=== PATIENT | male | born 1955 | race Caucasian/White ===

== ENCOUNTER 2017-04-19 19:55 | Emergency (ER) | payer OTHER ==
[~2017-04-19] VITALS: Ht 177.8 cm; Wt 81.8 kg
[~2017-04-19 19:55] MED LIST: ASPIRIN E.C. 8181 MG PO; PROSCAR PO
[2017-04-19 19:58] VITALS: BP 162/74; TEMP 97.7
[2017-04-19 20:27] LABS: BASO # 0.1 (0.0-0.2); BASO % 0.5 % (0.0-2.0); EOS # 0.2 (0.0-0.7); EOS % 1.5 % (0-4.0); GRAN % 54.9 % (42.2-75.2); HEMATOCRIT 42.7 % (42.0-52.0); HEMOGLOBIN 14.4 g/dl (13.5-18.0); LYMPH # 3.7 (1.2-3.4); LYMPH % 33.5 % (20.0-51.0); MEAN CELL VOLUME 93 fl (80.0-100.0); MEAN CORPUSCULAR HEMOGLOBIN 31 pg (27.0-31.0); MEAN CORPUSCULAR HGB CONC 34 g/dl (33.0-37.0); MEAN PLATELET VOLUME 10.7 fl (7.4-10.4); MONO % 9.3 % (1.7-9.3); PLATELET COUNT 194 K/mm3 (130-400); REDCELL DISTRIBUTION WIDTH-CV 13.5 % (11.5-14.5)
[2017-04-19 20:40] LABS: ADJUSTED CALCIUM 8.8 mg/dL (8.4-10.2); ALANINE AMINOTRANSFERASE 31 U/L (21-72); ALBUMIN 4.7 gm/dL (3.5-5.0); ALKALINE PHOSPHATASE 65 U/L (50-136); ANION GAP 12 mmol/L (7-16); BILIRUBIN,TOTAL 0.7 mg/dL (0.0-1.0); BLOOD UREA NITROGEN 27 mg/dL (9-20); CALCIUM 9.4 mg/dL (8.4-10.2); CARBON DIOXIDE 21 mmol/L (22-30); CHLORIDE 106 mmol/L (98-107); CREATININE, serum 1.04 mg/dL (0.66-1.25); GLUCOSE 98 mg/dL (74-106); LIPASE 81 U/L (23-300); POTASSIUM 3.9 mmol/L (3.4-5.0); SODIUM 139 mmol/L (137-145); TOTAL PROTEIN 8.3 gm/dL (6.4-8.2)
[2017-04-19 20:44] LABS: PH 5 (5-8); SQUAMOUS EPITHELIAL None Seen /hpf; URINE APPEARANCE Clear; URINE BACTERIA None Seen /hpf; URINE BILIRUBIN Negative (NEGATIVE); URINE BLOOD 2+ (NEGATIVE); URINE COLOR Yellow; URINE GLUCOSE Negative (NEGATIVE); URINE KETONE Trace (NEGATIVE); URINE URIC ACID CRYSTAL Present /hpf; URINE UROBILINOGEN Negative (NEGATIVE)
[2017-04-19 20:52] LABS: C-REACTIVE PROTEIN < 0.5 mg/dL (0.0-0.9)
[2017-04-19] MEDS ORDERED: ZOFRAN 4MG T4 MG/TAB PO (21:39)
[2017-04-19] MEDS ORDERED: NORCO 325 MG-51 TAB PO (21:39)
[2017-04-19] MEDS ORDERED: FLOMAX 0.40.4 MG/CAP PO (21:39)
[2017-04-19 22:02] VITALS: PULSE 62
== END 2017-04-19 22:05 | disposition home or self-care (01) ==
LOC: COL.ER 19:55
PROVIDERS: Emergency Medicine
DX: N13.2 Hydronephrosis with renal and ureteral calculous obstruction (principal)
CPT/HCPCS: J1170; J1885; J2405; J7030; Q9967

== ENCOUNTER 2017-04-21 09:18 | Day surgery (SDC) | payer OTHER ==
[~2017-04-21] VITALS: Ht 177.8 cm; Wt 84.0 kg
[~2017-04-21 09:18] MED LIST changes: +FLOMAX 0.40.4 MG/CAP PO; +NORCO 325 MG-51 TAB PO; +ZOFRAN 4MG T4 MG/TAB PO
[2017-04-21 10:19] VITALS: BP 121/74; PULSE 54; TEMP 97.7
[2017-04-21] MEDS ORDERED: ASPIRIN E.C. 8181 MG PO (10:45)
[2017-04-21] MEDS ORDERED: PEPCID 20MG TAB20 MG PO (10:47)
[2017-04-21] MEDS ORDERED: LUTEIN 15 MG-0.1 SGL PO (10:47)
[2017-04-21 12:30] VITALS: BP 152/71; PULSE 51; TEMP 97.2
[2017-04-21 12:45] VITALS: BP 160/85; PULSE 46
[2017-04-21 13:00] VITALS: BP 160/77; PULSE 45
[2017-04-21 14:17] VITALS: BP 156/86; PULSE 48; TEMP 98.5
== END 2017-04-21 13:32 | disposition home or self-care (01) ==
LOC: SDCO 09:18
DX: N20.1 Calculus of ureter (principal); R97.20 Elevated prostate specific antigen [PSA]; Z80.0 Family history of malignant neoplasm of digestive organs
CPT/HCPCS: C1769; C2617; C2625; J0690; J1100; J2405; J2704; J3010; J7120; Q9967

== ENCOUNTER 2020-12-02 11:09 | Day surgery (SDC) | payer MEDICARE, OTHER ==
[2020-12-02] VITALS (13 sets, daily range): BP systolic 108–157; BP diastolic 64–86; PULSE 47–76; TEMP 97.7–98
[~2020-12-02] VITALS: Ht 177.8 cm; Wt 86.5 kg
--- NOTE | 2020-12-02 10:05 | NUR ---
Patient returns to room 8 per cart from PACU accompanied by Lilibeth GAN and is arouses to verbal stimuli. Bandaids on mid abdomen clean and dry x3. Scrotal support on. IV fluids infusingTKO. Temp 98.7 and meggan hugger on for complaints of being cold. Sats 98% on 2L per nasal cannula.
--- NOTE | 2020-12-02 10:20 | NUR ---
States is warm enough and meggan hugger removed. Warm blankets on.
--- NOTE | 2020-12-02 10:35 | NUR ---
Resting without complaints of pain or nausea. Spouse remains in room.
--- NOTE | 2020-12-02 10:50 | NUR ---
Resting without complaints of pain or nausea.
--- NOTE | 2020-12-02 11:05 | NUR ---
More awake and oxygen removed. Sipping on Sprite.
[~2020-12-02 11:09] MED LIST changes: +LUTEIN 15 MG-0.1 SGL PO; +PEPCID 20MG TAB20 MG PO; +PROSCAR 5MG5 MG PO; -PROSCAR PO
[2020-12-02] MEDS ORDERED: VITAMINC1000TA PO (13:07)
[2020-12-02] MEDS ORDERED: VITAMIND3 5000 PO (13:08)
--- NOTE | 2020-12-02 14:58 | NUR ---
Pt has arrived to the unit from PACU. He is alert and oriented, tolerating ice water, no pain complaints. He is unable to feel or move his lower extremitries. CBI was running open, slowed down due to output being clear and no color. Educated the patient on room service as well as the plan for the day.
--- NOTE | 2020-12-02 15:49 | NUR ---
Pt continues to do well with no complaints. Gave him some applesauce at this time, output is pink tinged and clear with CBI running at slow to moderate rate
--- NOTE | 2020-12-02 23:57 | NUR ---
GIVEN MELATONIN FOR SLEEP.
[2020-12-03 00:20] VITALS: BP 142/82; PULSE 69; TEMP 98
--- NOTE | 2020-12-03 01:00 | NUR ---
IVF COMPLETE, CAPPED AT THIS TIME, PT TAKING FLUIDS WELL. CBI AT MODERATE RATE, URINE PINK TINGED.
[2020-12-03 04:49] VITALS: BP 135/69; PULSE 61; TEMP 97.8
--- NOTE | 2020-12-03 06:05 | NUR ---
Pt felt like he had a full bladder. Hand irrigated easily with no clots returned. Urine is pink tinged.
[2020-12-03 07:35] VITALS: BP 155/83; PULSE 78; TEMP 97.7
--- NOTE | 2020-12-03 09:00 | NUR ---
Patient alert and oriented, answers questions appropriately. See assessment. CBI clamped at 0700. Villatoro catheter in place and draining clear brandon urine. No c/o at this time.
--- NOTE | 2020-12-03 09:16 | NUR ---
Initial visit; Patient friendly and pleasant to visit with. Ayush states he is doing well and offered Cabinetmaker Supervisor God's blessings when she first offered blessings to him. Cabinetmaker Supervisor thanked patient and wished him a great day.
--- NOTE | 2020-12-03 10:51 | NUR ---
Prime and pull per doctors order. 300ml of NS instilled into the bladder via CBI. Floey discontinued. Patient tollerated it well.
--- NOTE | 2020-12-03 11:52 | NUR ---
SW met with the patient to discuss discharge plan. The patient lives in [place] with his , Alison (ph#[phone]). He reports independence with ADLs and does not have any DME. The patient's PCP is Dr. Bryce Pacheco and he receives his medications from [facility]. He reports no difficulties obtaining his meds. The patient does not have a DPOA-HC, but he states that he has the paperwork at home and plans on completing it soon. The patient plans to return home with his upon discharge. No additional needs at this time.
[2020-12-03 12:09] VITALS: BP 129/78; PULSE 79; TEMP 97.8
--- NOTE | 2020-12-03 13:34 | NUR ---
Discharge instructions reviewed with patient and spouse, verbalized understanding. Discharged via wheelchair to auto/home with spouse at 1245.
== END 2020-12-03 12:45 | disposition home or self-care (01) ==
LOC: SURG 11:09 → SDCO 11:09 → SURG 14:45 → SDCO 12-03 12:45
DX: N40.1 Benign prostatic hyperplasia with lower urinary tract symptoms (principal); N13.8 Other obstructive and reflux uropathy; N39.41 Urge incontinence; R39.12 Poor urinary stream; I10 Essential (primary) hypertension; Z90.89 Acquired absence of other organs; Z79.82 Long term (current) use of aspirin; Z79.899 Other long term (current) drug therapy; Z79.891 Long term (current) use of opiate analgesic; Z88.1 Allergy status to other antibiotic agents; Z80.0 Family history of malignant neoplasm of digestive organs; Z80.41 Family history of malignant neoplasm of ovary
CPT/HCPCS: OP; J0690; J1100; J2250; J2405; J2704; J3480; J7120

== ENCOUNTER 2023-09-13 14:17 | Day surgery (SDC) | payer MEDICARE, OTHER ==
[~2023-09-13] VITALS: Ht 177.8 cm; Wt 84.6 kg
[~2023-09-13 14:17] MED LIST changes: +VITAMINC1000TA PO; +VITAMIND3 5000 PO
[2023-09-13] MEDS ORDERED: ASPIRIN 81M81 MG/TA2 PO (14:47)
[2023-09-13 14:49] VITALS: BP 118/80; PULSE 62; TEMP 98
--- NOTE | 2023-09-13 15:17 | NUR ---
PATIENT AMBULATED TO BAY 8 WITH STEADY GAIT. ALERT AND ORIENTED X4. PATIENT STATED UNDERSTANDING OF PROCEDURE. CONSENTS SIGNED. ASSESSMENT COMPLETED. 20G IV STARTED IN RIGHT HAND. GOOD BLOOD RETURN NOTED. LR INFUSING WITHOUT DIFFICULTIES. WARM BLANKET PROVIDED. NO FURTHER NEEDS NOTED. RESTING IN COT. CALL LIGHT IN REACH. AT BEDSIDE.
[2023-09-13] MEDS ORDERED: PERCOCET 325 MG1 TA2 PO (17:18)
[2023-09-13] MEDS ORDERED: FLOMAX 0.40.4 MG/CAP PO (17:18)
[2023-09-13 18:05] VITALS: BP 153/70; PULSE 72
[2023-09-13 18:20] VITALS: BP 139/78; PULSE 67
--- NOTE | 2023-09-13 18:30 | NUR ---
Pt arrived to the floor recently from Pacu. Pt at bedside. Pt has no complaints of pain. He has tolerated water, gave him some beverly crackers and applesauce at this time. VSS. Did discuss seeing primary care regarding his blood pressure. Educated on criteria for discharge
[2023-09-13 18:35] VITALS: BP 144/72; PULSE 67
--- NOTE | 2023-09-13 18:47 | NUR ---
report received from jeannette blackman. pt sitting in bed with at bedside. pt denies pain. pt up to bathroom, voided with no issue. pt gait steady. call light in place. all needs met at this time.
--- NOTE | 2023-09-13 18:47 | NUR ---
Pt has tolerated regular food and is in the bathroom now. Pt was steady on his feet. Continues to have no complaints of pain. Report given
--- NOTE | 2023-09-13 19:13 | NUR ---
Pt has tolerated general diet and voided without difficulty. VSS. Reviewed discharge instructions with pt and spouse. Went over new prescriptions and ensuring a follow up appointment is made with urology. Educated pt to drink plenty of water. No needs or questions. INT removed from right hand and pt escorted out via wheelchair by myself.
[2023-09-13 19:58] VITALS: BP 153/70; PULSE 60; TEMP 97
== END 2023-09-13 19:15 | disposition home or self-care (01) ==
LOC: SDCO 14:17 → SURG 18:05 → SDCO 19:15
DX: N20.2 Calculus of kidney with calculus of ureter (principal); N40.0 Benign prostatic hyperplasia without lower urinary tract symptoms
CPT/HCPCS: OP; C1769; C2617; J0360; J0690; J2704; J3010; J7120